=== PATIENT | female | born 1970 | race Two or more races ===

== ENCOUNTER 2017-12-30 06:32 | Day surgery (SDC) | payer BC ==
[~2017-12-30 06:32] MED LIST: CEFAZOLIN 2 GM/50 ML (PMX) 50 ML IVPB
[2017-12-30] MEDS ORDERED: ROCURONIUM 50 MG INJ (07:32)
[2017-12-30] MEDS ORDERED: DEXAMETHASONE 4 MG/ML 1 ML INJ (07:32)
[2017-12-30] MEDS ORDERED: ONDANSETRON 4 MG INJ (07:32)
[2017-12-30] MEDS ORDERED: GLYCOPYRROLATE 0.4 MG INJ (07:32)
[2017-12-30] MEDS ORDERED: MIDAZOLAM 1 MG/ML 2 ML INJ (07:32)
[2017-12-30] MEDS ORDERED: PROPOFOL 20 ML (07:32)
[2017-12-30] MEDS ORDERED: FENTAnyl 50 MCG/ML VIAL (07:32)
[2017-12-30] MEDS ORDERED: NEOSTIGMINE 3 MG/3 ML SYRINGE (07:32)
[2017-12-30] MEDS ORDERED: CEFAZOLIN 1 GM INJ (07:32)
[2017-12-30] MEDS ORDERED: ROPIVACAINE 0.5 % 30 ML VIAL (07:33)
[2017-12-30] MEDS ORDERED: METHYLPREDNISOLONE ACET 80 MG/ML 1 ML (07:59)
[2017-12-30] MEDS: morphine SULFATE/PF (10 MG/10 ML) INJ (09:02)
[2017-12-30] MEDS: METHYLPREDNISOLONE ACET 80 MG/ML 1 ML (09:03)
[2017-12-30] MEDS: SODIUM CL BACTERIOSTATIC 30 ML INJ (09:07)
[2017-12-30] MEDS ORDERED: SUGAMMADEX SODIUM 200 MG/2 ML VIAL IV (09:49)
[2017-12-30] MEDS ORDERED: METOCLOPRAMIDE 10 MG INJ (09:49)
[2017-12-30] MEDS ORDERED: MEPERIDINE 25 MG INJ (10:48)
[2017-12-30] MEDS: MEPERIDINE 25 MG INJ IV (11:11)
== END 2017-12-30 13:45 | disposition home or self-care (01) ==
LOC: SDS 06:32
DX: S43.431A Superior glenoid labrum lesion of right shoulder, initial encounter (principal); X58.XXXA Exposure to other specified factors, initial encounter; M65.811 Other synovitis and tenosynovitis, right shoulder; M75.41 Impingement syndrome of right shoulder; M25.311 Other instability, right shoulder; M24.611 Ankylosis, right shoulder; I10 Essential (primary) hypertension; E11.9 Type 2 diabetes mellitus without complications; E03.9 Hypothyroidism, unspecified
CPT/HCPCS: 23455; 82962